=== PATIENT | female | born 2000 | race Caucasian/White ===

== ENCOUNTER 2023-04-14 03:56 | Emergency (ER) | payer MEDICAID ==
[~2023-04-14] VITALS: Ht 165.1 cm; Wt 64.0 kg
[2023-04-14 04:10] VITALS: BP_SYST 135; RESP 19; TEMP 98; O2SAT 98
[2023-04-14] MEDS ORDERED: ceFAZolin SODIUM 2 GM VIAL IM ONE (05:15)
[2023-04-14] MEDS ORDERED: CEFAZOLIN 2 GM IVPB PREMIX 50 ML IV ONE (05:26)
[2023-04-14] MEDS ORDERED: CEPH-548 PO (05:41)
[2023-04-14 05:49] VITALS: BP_SYST 120; PULSE 83; RESP 18; TEMP 99.3; O2SAT 99
== END 2023-04-14 05:49 | disposition home or self-care (01) ==
LOC: SED 03:56
DX: L03.116 Cellulitis of left lower limb (principal); R21 Rash and other nonspecific skin eruption; Z79.899 Other long term (current) drug therapy
CPT/HCPCS: 99283; 96372; J0690

== ENCOUNTER 2023-12-12 08:40 | Emergency (ER) | payer MEDICAID ==
[~2023-12-12] VITALS: Ht 167.6 cm; Wt 108.9 kg
[~2023-12-12 08:40] MED LIST: CEPH-548 PO
[2023-12-12 08:46] VITALS: BP_SYST 144; PULSE 76; RESP 18; TEMP 98.3; O2SAT 99
[2023-12-12] MEDS ORDERED: CEPH250C PO (09:36)
[2023-12-12] MEDS: DIPHTH,PERTUSS(ACELL),TET VAC 0.5 ML VIAL (Tdap) I.M. ONE (09:37)
[2023-12-12] MEDS ORDERED: SULF1TAB48 PO (09:42)
[2023-12-12 09:48] VITALS: BP_SYST 144; PULSE 76; RESP 18; TEMP 98.3; O2SAT 99
== END 2023-12-12 09:48 | disposition home or self-care (01) ==
LOC: SED 08:40
DX: L03.114 Cellulitis of left upper limb (principal); Z23 Encounter for immunization; Z79.899 Other long term (current) drug therapy; Z79.2 Long term (current) use of antibiotics
CPT/HCPCS: 81025; 90715; 99283